=== PATIENT | female | born 1960 | race Caucasian/White ===

== ENCOUNTER → 2017-08-25 14:28 | Outpatient (REF) | payer BC, SELFPAY | LOC: LAB 14:28 | PROVIDERS: Visit Provider Orthopaedic Surgery Adult Reconstructive Orthopaedic Surgery | DX: Z96.651 Presence of right artificial knee joint (principal) | CPT/HCPCS: 87070; 87077; 87205 ==

== ENCOUNTER 2017-09-11 14:00 | Outpatient (RCR) | payer BC, SELFPAY | END 2017-09-11 14:01 | disposition home or self-care (01) | LOC: PT 14:00 | PROVIDERS: Visit Provider Orthopaedic Surgery Adult Reconstructive Orthopaedic Surgery | DX: Z96.641 Presence of right artificial hip joint (principal) | CPT/HCPCS: 97162; 97597 ==